=== PATIENT | female | born 1945 | race Caucasian/White ===

== ENCOUNTER 2020-08-03 05:05 | Emergency (ER) | payer MEDICARE, BC ==
[2020-08-03] MEDS ORDERED: Ondansetron 4 MG/2 ML SDV IVPUSH ONE (05:18)
--- NOTE | 2020-08-03 05:20 | EDM.PDOC ---
ED HPI GENERAL MEDICAL PROBLEM - General Chief Complaint: Abdominal Pain Stated Complaint: nausea Time Seen by Provider: 08/03/20 05:20 Source of Information: Reports: Patient, EMS History Limitations: Reports: No Limitations - History of Present Illness INITIAL COMMENTS - FREE TEXT/NARRATIVE: Kaylin, 74-year-old female, presents via ambulance after experiencing worsening nausea abdominal pressure consistent with previous bowel obstruction 8 to 10 years ago. She presents via ambulance with focus on the fact her nausea is worsened and history of abdominal obstruction. She denies any exposures, fever, chills, shortness of breath, or other COVID-19 pandemic concerns. Onset: Gradual Onset Date: 08/02/20 Onset Time: 23:00 Duration: Hour(s):, Getting Worse Location: Reports: Abdomen Quality: Reports: Pressure, Same as Previous Episode Severity: Moderate Improves with: Reports: None Worsens with: Reports: Eating Context: Reports: Activity Associated Symptoms: Reports: No Other Symptoms - Related Data Allergies Allergy/AdvReac Type Severity Reaction Status Date / Time celecoxib [From Celebrex] Allergy Stomach Verified 08/03/20 05:13 Upset Home Meds: Home Meds Aspirin 81 mg PO DAILY 08/03/20 [History] Cholecalciferol (Vitamin D3) [Vitamin D3] 4,000 unit PO DAILY 08/03/20 [History] Ferrous Sulfate 325 mg PO DAILY 08/03/20 [History] Fexofenadine [Marj] 180 mg PO DAILY 08/03/20 [History] Lutein/Min/Vit C/Vit E Acetate [Ocuvite Lutein] 1 cap PO DAILY 08/03/20 [History] Multivit,Calc,Mins/Iron/Folic [Thera-M] 1 tab PO DAILY 08/03/20 [History] Omeprazole 40 mg PO ONETIME 08/03/20 [History] PARoxetine [Paxil] 20 mg PO DAILY 08/03/20 [History] Pravastatin [Pravachol] 40 mg PO DAILY 08/03/20 [History] Past Medical History HEENT History: Reports: Impaired Vision Cardiovascular History: Reports: High Cholesterol Respiratory History: Reports: None Gastrointestinal History: Reports: Bowel Obstruction, Hiatal Hernia, Other (See Below) (Positive colorectal cancer screening using Cologuard) Genitourinary History: Reports: None Musculoskeletal History: Reports: Arthritis, Back Pain, Chronic (Degenerative disc, lumbar), Osteoarthritis, Other (See Below) (Plantar fasciitis of the foot) Neurological History: Reports: None Psychiatric History: Reports: Anxiety, Depression Hematologic History: Reports: Anemia Oncologic (Cancer) History: Reports: Colon (Per Cologuard testing) - Past Imaging History Past Imaging History: Reports: CAT Scan, Xray Social & Family History - Family History Family Medical History: No Pertinent Family History - Tobacco Use Tobacco Use Status *Q: Never Tobacco User ED ROS GENERAL - Review of Systems Review Of Systems: Comprehensive ROS is negative, except as noted in HPI. Constitutional: Reports: No Symptoms ED EXAM, GENERAL - Physical Exam Exam: See Below Free Text/Narrative:: Alert, oriented, in mild nauseous distress. HEENT is negative discharge or deformity. PERRLA with glasses. [place] moist mucous membranes with no erythema. Neck is soft and supple no lymphadenopathy, no JVD, no carotid bruit auscultated. Thorax has scattered rhonchi with no wheezes nor crackles. Cardiac is S1-S2 I do not appreciate murmur. Abdomen is rotund soft with no point tenderness but generalized discomfort with no bowel sounds auscultated at time of arrival. There is no pain or pressure over the urinary bladder pelvis. Skin is warm and dry no edema to the extremities she is able to move upon command. No integument abnormalities are appreciated. Exam Limited By: No Limitations Course - Vital Signs Last Recorded V/S: Last Vital Signs Temp 97.6 F 08/03/20 06:49 Pulse 81 08/03/20 06:49 Resp 18 08/03/20 06:49 BP 179/85 H 08/03/20 06:49 Pulse Ox 97 08/03/20 06:49 - Orders/Labs/Meds Orders: Active Orders 24 hr Category Date Time Status Abdomen 1V Upright [CR] Stat Exams 08/03/20 05:19 Ordered Abdomen 2V AP Upright Decub [CR] Stat Exams 08/03/20 05:19 Ordered Abdomen Pelvis w Cont [CT] Stat Exams 08/03/20 05:58 Ordered Chest 2V [CR] Stat Exams 08/03/20 05:20 Ordered Meropenem [Merrem] 1 gm Med 08/03/20 07:50 Active Sodium Chloride 0.9% [Normal Saline] 100 ml IV ONETIME Sodium Chloride 0.9% [Normal Saline] 50 ml Med 08/03/20 06:15 Active IV ASDIRECTED Medication Orders Sodium Chloride (Normal Saline) 50 mls @ 200 mls/min IV ASDIRECTED SANKET Last Admin: 08/03/20 07:14 Dose: 200 mls/min Documented by: WALLY Meropenem 1 gm/ Sodium (Chloride) 100 mls @ 200 mls/hr IV ONETIME ONE Stop: 08/03/20 08:19 Labs: Laboratory Tests 08/03/20 08/03/20 08/03/20 Range/Units 05:33 05:33 05:33 WBC 17.82 H (5.00-10.00) 10^3/uL RBC 4.51 (3.80-5.50) 10^6/uL Hgb 12.8 (12.0-16.0) g/dL Hct 38.7 (37.0-47.0) % MCV 85.8 (82.0-92.0) fL MCH 28.4 (27.0-31.0) pg MCHC 33.1 (32.0-36.0) g/dL RDW 13.0 (11.5-14.5) % Plt Count 323 (150-400) 10^3/uL MPV 11.0 H (7.4-10.4) fL Add Manual Diff Yes Neutrophils % (Manual) 92 H (50-70) % Band Neutrophils % 3 L (4-12) % Lymphocytes % (Manual) 1 L (20-40) % Monocytes % (Manual) 4 (2-8) % Absolute Neutrophils 16.39 Band Neutrophils # 0.53 Lymphocytes # (Manual) 0.18 Monocytes # (Manual) 0.71 Sodium 134 L (136-145) mmol/L Potassium 3.9 (3.5-5.1) mmol/L Chloride 100 (98-107) mmol/L Carbon Dioxide 25.8 (21.0-32.0) mmol/L Anion Gap 12.1 (5-15) mmol/L BUN 16 (7-18) mg/dL Creatinine 0.77 (0.51-1.17) mg/dL Est Cr Clr Drug Dosing 64.22 mL/min Estimated GFR (MDRD) > 60 mL/min Glucose 169 H (70-140) mg/dL Lactic Acid 1.3 (0.4-2.0) mmol/L Calcium 8.7 (8.7-10.3) mg/dL Total Bilirubin 0.6 (0.2-1.0) mg/dL AST 15 (15-37) U/L ALT 18 (14-63) U/L Alkaline Phosphatase 110 (46-116) U/L Total Protein 7.4 (6.4-8.2) g/dL Albumin 3.54 (3.40-5.00) g/dL Amylase 44 (25-125) U/L Lipase 88 (73-393) U/L Specimen Type Urine Color (YELLOW) Urine Appearance (CLEAR) Urine pH (5.0-9.0) Ur Specific [place] (1.005-1.030) Urine Protein (NEGATIVE) mg/dL Urine Glucose (UA) (NEGATIVE) mg/dL Urine Ketones (NEGATIVE) mg/dL Urine Occult Blood (NEGATIVE) Urine Nitrite (NEGATIVE) Urine Bilirubin (NEGATIVE) Urine Urobilinogen (0.2-1.0) E.U./dL Ur Leukocyte Esterase (NEGATIVE) Urine RBC (0-5) /HPF Urine WBC (0-5) /HPF Ur Epithelial Cells /LPF Amorphous Sediment (0/HPF) /HPF Urine Bacteria (NONE TO FEW) /HPF 08/03/20 Range/Units 05:50 WBC (5.00-10.00) 10^3/uL RBC (3.80-5.50) 10^6/uL Hgb (12.0-16.0) g/dL Hct (37.0-47.0) % MCV (82.0-92.0) fL MCH (27.0-31.0) pg MCHC (32.0-36.0) g/dL RDW (11.5-14.5) % Plt Count (150-400) 10^3/uL MPV (7.4-10.4) fL Add Manual Diff Neutrophils % (Manual) (50-70) % Band Neutrophils % (4-12) % Lymphocytes % (Manual) (20-40) % Monocytes % (Manual) (2-8) % Absolute Neutrophils Band Neutrophils # Lymphocytes # (Manual) Monocytes # (Manual) Sodium (136-145) mmol/L Potassium (3.5-5.1) mmol/L Chloride (98-107) mmol/L Carbon Dioxide (21.0-32.0) mmol/L Anion Gap (5-15) mmol/L BUN (7-18) mg/dL Creatinine (0.51-1.17) mg/dL Est Cr Clr Drug Dosing mL/min Estimated GFR (MDRD) mL/min Glucose (70-140) mg/dL Lactic Acid (0.4-2.0) mmol/L Calcium (8.7-10.3) mg/dL Total Bilirubin (0.2-1.0) mg/dL AST (15-37) U/L ALT (14-63) U/L Alkaline Phosphatase (46-116) U/L Total Protein (6.4-8.2) g/dL Albumin (3.40-5.00) g/dL Amylase (25-125) U/L Lipase (73-393) U/L Specimen Type Urincc Urine Color Yellow (YELLOW) Urine Appearance Slightly cloudy H (CLEAR) Urine pH 8.5 (5.0-9.0) Ur Specific [place] 1.020 (1.005-1.030) Urine Protein 30 H (NEGATIVE) mg/dL Urine Glucose (UA) Negative (NEGATIVE) mg/dL Urine Ketones Trace H (NEGATIVE) mg/dL Urine Occult Blood Trace-intact H (NEGATIVE) Urine Nitrite Negative (NEGATIVE) Urine Bilirubin Negative (NEGATIVE) Urine Urobilinogen 0.2 (0.2-1.0) E.U./dL Ur Leukocyte Esterase Negative (NEGATIVE) Urine RBC 5-10 H (0-5) /HPF Urine WBC 0-5 (0-5) /HPF Ur Epithelial Cells Few /LPF Amorphous Sediment Moderate H (0/HPF) /HPF Urine Bacteria Few (NONE TO FEW) /HPF Meds: Medications Generic Name Dose Route Start Last Admin Trade Name Freq PRN Reason Stop Dose Admin Sodium Chloride 50 mls @ 200 mls/min 08/03/20 06:15 08/03/20 07:14 Normal Saline IV 200 mls/min ASDIRECTED SANKET Administration Meropenem 1 gm/ Sodium 100 mls @ 200 mls/hr 08/03/20 07:50 Chloride IV 08/03/20 08:19 ONETIME ONE Discontinued Medications Generic Name Dose Route Start Last Admin Trade Name Freq PRN Reason Stop Dose Admin Diatrizoate Meglum/Diatrizoate Sod 30 ml 08/03/20 06:09 08/03/20 07:14 Gastrografin 37% PO 08/03/20 06:10 30 ml ONETIME ONE Administration Iopamidol 75 ml 08/03/20 06:09 08/03/20 07:14 Isovue-370 (76%) IVPUSH 08/03/20 06:10 75 ml ONETIME ONE Administration Ondansetron HCl 8 mg 08/03/20 05:18 08/03/20 05:26 Zofran IVPUSH 08/03/20 05:19 8 mg ONETIME ONE Administration - Radiology Interpretation Free Text/Narrative:: Scattered air-fluid levels on flat upright. Hazy appearing chest x-ray with some cardiomegaly over read pending. CT with IV and oral contrast will be performed of the abdomen pelvis secondary of history of torturous bowel and likelihood of obstruction. CT Results Date: 08/03/20 - Re-Assessments/Exams Free Text/Narrative Re-Assessment/Exam: 08/03/20 06:06 Significant improvement, more responsive and appropriate after IV Ondanastron resolved her nausea. Departure - Departure Time of Disposition: 08:02 Disposition: DC/Tfer to Acute Hospital 02 Condition: Good Clinical Impression: Small bowel obstruction, Nausea & vomiting, Small bowel obstruction due to adhesions - Discharge Information *PRESCRIPTION DRUG MONITORING PROGRAM REVIEWED*: Not Applicable *COPY OF PRESCRIPTION DRUG MONITORING REPORT IN PATIENT DENISE: Not Applicable Referrals: Valentina Rueda NP [Primary Care Provider] - Forms: ED Department Discharge, Interfacility Transfer EMTALA Additional Instructions: Contact with [address] Christine mccabe and will transfer via [facility] ambulance. Sepsis Event Note (ED) - Evaluation Sepsis Screening Result: No Definite Risk - Focused Exam Vital Signs: Vital Signs Temp Pulse Resp BP Pulse Ox 08/03/20 06:49 97.6 F 81 18 179/85 H 97 08/03/20 06:30 79 18 167/78 H 96 08/03/20 06:00 81 18 172/83 H 96 08/03/20 05:30 80 18 177/83 H 96 08/03/20 05:15 97.2 F 76 20 172/81 H 96 08/03/20 05:13 97.2 F 72 20 171/82 H 92 L ED Communication - ED Communication Date/Time Date: 08/03/20 Time Called: 07:59 - Discussed Case With (1) Discussed Case With (1): Admitting Provider Person/s Notified (1): Zac King MD ([facility]) - Problem List & Annotations (1) Nausea & vomiting SNOMED Code(s): 35530413 Code(s): R11.2 - NAUSEA WITH VOMITING, UNSPECIFIED Status: Acute Priority: High Current Visit: No Qualifiers: Vomiting type: bilious vomiting Qualified Code(s): R11.14 - Bilious vomiting (2) Bowel obstruction SNOMED Code(s): 55425560 Code(s): K56.609 - UNSP INTESTNL OBST, UNSP TO PARTIAL VERSUS COMPLETE OBST Status: Acute Priority: High Current Visit: No (3) Abdominal pain SNOMED Code(s): 60705587 Code(s): R10.9 - UNSPECIFIED ABDOMINAL PAIN Status: Acute Priority: High Current Visit: No (4) Hyperglycemia SNOMED Code(s): 80780566 Code(s): R73.9 - HYPERGLYCEMIA, UNSPECIFIED Status: Acute Current Visit: No (5) Leukocytosis, unspecified SNOMED Code(s): 180280059, 721619482 Code(s): D72.829 - ELEVATED WHITE BLOOD CELL COUNT, UNSPECIFIED Status: Acute Current Visit: No Qualifiers: Leukocytosis type: unspecified Qualified Code(s): D72.829 - Elevated white blood cell count, unspecified (6) Small bowel obstruction due to adhesions SNOMED Code(s): 117863025 Code(s): K56.50 - INTESTNL ADHESIONS, UNSP TO PARTIAL VERSUS COMPLETE OBST Status: Acute Current Visit: Yes (7) Hepatic steatosis SNOMED Code(s): 361174140 Code(s): K76.0 - FATTY (CHANGE OF) LIVER, NOT ELSEWHERE CLASSIFIED Status: Chronic Priority: Medium Current Visit: Yes (8) Hiatal hernia SNOMED Code(s): 61957892 Code(s): K44.9 - DIAPHRAGMATIC HERNIA WITHOUT OBSTRUCTION OR GANGRENE Status: Chronic Priority: Medium Current Visit: Yes (9) Inguinal hernia of left side without obstruction or gangrene SNOMED Code(s): 928174254 Code(s): K40.90 - UNIL INGUINAL HERNIA, W/O OBST OR GANGR, NOT SPCF RECUR Status: Chronic Priority: Medium Current Visit: Yes - Problem List Review Problem List Initiated/Reviewed/Updated: Yes - My Orders Last 24 Hours: My Active Orders 08/03/20 05:19 Abdomen 1V Upright [CR] Stat Abdomen 2V AP Upright Decub [CR] Stat 08/03/20 05:20 Chest 2V [CR] Stat 08/03/20 05:58 Abdomen Pelvis w Cont [CT] Stat 08/03/20 06:15 Sodium Chloride 0.9% [Normal Saline] 50 ml IV ASDIRECTED 08/03/20 07:50 Meropenem [Merrem] 1 gm Sodium Chloride 0.9% [Normal Saline] 100 ml IV ONETIME - Assessment/Plan Last 24 Hours: My Active Orders 08/03/20 05:19 Abdomen 1V Upright [CR] Stat Abdomen 2V AP Upright Decub [CR] Stat 08/03/20 05:20 Chest 2V [CR] Stat 08/03/20 05:58 Abdomen Pelvis w Cont [CT] Stat 08/03/20 06:15 Sodium Chloride 0.9% [Normal Saline] 50 ml IV ASDIRECTED 08/03/20 07:50 Meropenem [Merrem] 1 gm Sodium Chloride 0.9% [Normal Saline] 100 ml IV ONETIME Plan: Contact with [address] Christine mccabe and will transfer via [facility].
[2020-08-03] MEDS ORDERED: Iopamidol 755 Mg/ML 75 ML Bottle IVPUSH ONE (06:09)
[2020-08-03] MEDS ORDERED: Diatrizoate Meglumine/Diatrizoate Sodium 37% 30 ML Bottle PO ONE (06:09)
[2020-08-03 06:10] LABS: ANION GAP 12.1 mmol/L (5-15); CHLORIDE,CL 100 mmol/L (98-107); SODIUM,NA 134 mmol/L (136-145)
[2020-08-03] MEDS ORDERED: Sodium Chloride 0.9% 50 ML IV SCH ×2 (06:15→08:30)
[2020-08-03] MEDS ORDERED: Meropenem 1 GM in Sodium Chloride 0.9% 100 ML IV ONE (07:50)
[2020-08-03] MEDS ORDERED: LORazepam 2 MG/ML SDV IVPUSH ONE (08:28)
[2020-08-03] MEDS ORDERED: Sodium Chloride 0.9% 1,000 ML IV SCH (08:30)
[2020-08-03 09:10] VITALS: BP 191/84; PULSE 99
--- NOTE | 2020-08-03 10:54 | CR ---
[id number] RAD/RAD Chest PA And Lateral EXAM: RAD Chest PA And Lateral INDICATION: ABDOMEN PAIN COMPARISON: None. DISCUSSION: Low lung volumes associated vascular crowding. Bilateral patchy pulmonary infiltrates at the lung bases, right greater than left. No pneumothorax or pleural effusion. IMPRESSION: Bilateral patchy pulmonary infiltrates at the lung bases, right greater than left. Frederick Reynoso DO 08/03/20 1054 Thank you for allowing us to participate in the care of your patient.
--- NOTE | 2020-08-03 10:55 | CR ---
[id number] RAD/RAD Abd Flat and Upright 2V EXAM: RAD Abd Flat and Upright 2V INDICATION: ABDOMEN PAIN COMPARISON: None. DISCUSSION: Upper abdominal small bowel air-fluid level. No dilated loops are identified. No radiographically evident pneumoperitoneum. Moderate amount of retained stool within the colon. IMPRESSION: Findings suggestive of ileus. Frederick Reynoso DO 08/03/20 1055 Thank you for allowing us to participate in the care of your patient.
== END 2020-08-03 08:45 ==
LOC: KA.ED 05:05
DX: K56.50 Intestinal adhesions [bands], unspecified as to partial versus complete obstruction (principal); E78.00 Pure hypercholesterolemia, unspecified; M19.90 Unspecified osteoarthritis, unspecified site; F41.9 Anxiety disorder, unspecified; F32.9 Major depressive disorder, single episode, unspecified; D64.9 Anemia, unspecified; Z88.1 Allergy status to other antibiotic agents; Z79.82 Long term (current) use of aspirin; Z79.899 Other long term (current) drug therapy
CPT/HCPCS: 36415; 71046; 74021; 74177; 80053; 81001; 82150; 83605; 83690; 85025; 96365; 96375; 99284; 99285-25; J2060; J2185; J2405; J7030; Q9963; Q9967

== ENCOUNTER 2021-03-14 04:25 | Emergency (ER) | payer MEDICARE, BC ==
[2021-03-14] MEDS ORDERED: Sodium Chloride 0.9% 1,000 ML ONE (05:05)
[2021-03-14] MEDS ORDERED: Sodium Chloride 0.9% 1,000 ML IV ONE ×2 (05:07→08:21)
--- NOTE | 2021-03-14 05:48 | EDM.PDOC ---
ED HPI GENERAL MEDICAL PROBLEM - General Chief Complaint: Abdominal Pain Time Seen by Provider: 03/14/21 05:05 Source of Information: Reports: Patient History Limitations: Reports: No Limitations - History of Present Illness INITIAL COMMENTS - FREE TEXT/NARRATIVE: Patient presents with profuse vomiting for 4 hours. She is also burping but not passing any stool or gas since 6 hours ago. She has had bowel obstructions in the past and feels like that again. She is quite sure she has Crohn's but they can't make the definitive diagnosis without a colonoscopy, which she was told not to have again after an attempt found her colon is very twisted, she says. She also has several adhesions from a hysterectomy, she has been told. Her abdomen is sore but not acutely painful. Starting 5 days ago, she had 3 days of frequent diarrhea (M-W), but that stopped on . Tuesday (yesterday) she had some again until a little before midnight. - Related Data Allergies Allergy/AdvReac Type Severity Reaction Status Date / Time celecoxib [From Celebrex] Allergy Stomach Verified 03/14/21 06:56 Upset Home Meds: Home Meds Aspirin 81 mg PO DAILY 08/03/20 [History] Cholecalciferol (Vitamin D3) [Vitamin D3] 4,000 unit PO DAILY 08/03/20 [History] Ferrous Sulfate 325 mg PO DAILY 08/03/20 [History] Fexofenadine [Marj] 180 mg PO DAILY 08/03/20 [History] Lutein/Min/Vit C/Vit E Acetate [Ocuvite Lutein] 1 cap PO DAILY 08/03/20 [History] Multivit,Calc,Mins/Iron/Folic [Thera-M] 1 tab PO DAILY 08/03/20 [History] Omeprazole 40 mg PO ONETIME 08/03/20 [History] PARoxetine [Paxil] 20 mg PO DAILY 08/03/20 [History] Pravastatin [Pravachol] 40 mg PO DAILY 08/03/20 [History] Past Medical History HEENT History: Reports: Cataract, Impaired Vision Cardiovascular History: Reports: High Cholesterol Respiratory History: Reports: None Gastrointestinal History: Reports: Bowel Obstruction, Hiatal Hernia, Other (See Below) Other Gastrointestinal History: "twists in colon"noted on colonoscopy Genitourinary History: Reports: None, Other (See Below) Other Genitourinary History: urinary urgency [employer] History: Reports: Musculoskeletal History: Reports: Arthritis, Back Pain, Chronic, Osteoarthritis, Other (See Below) Other Musculoskeletal History: bursitis in R upper leg and R shoulder Neurological History: Reports: None Psychiatric History: Reports: Anxiety, Depression Hematologic History: Reports: Anemia Oncologic (Cancer) History: Reports: Colon Dermatologic History: Reports: Other (See Below) Other Dermatologic History: moles to back - Infectious Disease History Infectious Disease History: Reports: Chicken Pox, Influenza, Measles - Past Surgical History GI Surgical History: Reports: Colonoscopy Female Surgical History: Reports: None, Hysterectomy, Other (See Below) Other Female Surgeries/Procedures: partial hysterectomy Neurological Surgical History: Reports: None Musculoskeletal Surgical History: Reports: None - Past Imaging History Past Imaging History: Reports: CAT Scan, Xray Social & Family History - Family History Family Medical History: No Pertinent Family History - Caffeine Use Caffeine Use: Reports: Coffee ED ROS GENERAL - Review of Systems Review Of Systems: See Below Constitutional: Denies: Fever, Malaise, Weakness, Diaphoresis HEENT: Denies: Throat Pain, Vision Change Respiratory: Denies: Shortness of Breath, Cough Cardiovascular: Denies: Chest Pain, Lightheadedness, Syncope GI/Abdominal: Reports: Abdominal Pain, Diarrhea, Nausea, Vomiting : Denies: Dysuria, Flank Pain Musculoskeletal: Reports: No Symptoms Skin: Denies: Cyanosis, Jaundice, Mottled, Pallor, Diaphoresis Neurological: Denies: Confusion, Dizziness, Headache, Seizure, Syncope, Trouble Speaking, Difficulty Walking Psychiatric: Denies: Agitation, Anxiety, Confusion ED EXAM, GI/ABD - Physical Exam Exam: See Below Exam Limited By: No Limitations General Appearance: Alert, WD/WN, No Apparent Distress Eyes: Bilateral: Normal Appearance, EOMI Ears: Normal External Exam, Hearing Grossly Normal Nose: Normal Inspection, No Blood Throat/Mouth: Normal Inspection, Normal Lips, Normal Voice, No Airway Compromise Head: Atraumatic, Normocephalic Neck: Normal Inspection, Full Range of Motion Respiratory/Chest: No Respiratory Distress, Lungs Clear, Normal Breath Sounds, No Accessory Muscle Use Cardiovascular: Regular Rate, Rhythm, No Murmur GI/Abdominal Exam: Soft, No Organomegaly, No Distention, Tender (mild, general), Abnormal Bowel Sounds (decreased). No: Guarding, Rigid Back Exam: Normal Inspection, Full Range of Motion. No: CVA Tenderness (L), CVA Tenderness (R) Extremities: Normal Inspection, Normal Range of Motion Neurological: Alert, Oriented, Normal Cognition, No Motor/Sensory Deficits Psychiatric: Normal Affect, Normal Mood Skin Exam: Warm, Dry, Intact, Normal Color, No Rash Course - Vital Signs Last Recorded V/S: Last Vital Signs Temp 96.9 F 03/14/21 04:25 Pulse 88 03/14/21 04:25 Resp 16 03/14/21 04:25 BP 150/81 H 03/14/21 04:25 Pulse Ox 95 03/14/21 04:25 - Orders/Labs/Meds Orders: Active Orders 24 hr Category Date Time Status Sodium Chloride 0.9% [Normal Saline] 1,000 ml Med 03/14/21 08:21 Ordered IV .BOLUS Sodium Chloride 0.9% [Normal Saline] 50 ml Med 03/14/21 06:45 Active IV ASDIRECTED Medication Orders Sodium Chloride (Normal Saline) 50 mls @ 200 mls/hr IV ASDIRECTED SANKET Last Admin: 03/14/21 06:28 Dose: 200 mls/hr Documented by: MYRIAM Sodium Chloride (Normal Saline) 1,000 mls @ 500 mls/hr IV .BOLUS ONE Stop: 03/14/21 10:20 Labs: Laboratory Tests 03/14/21 03/14/21 03/14/21 Range/Units 05:07 05:22 05:22 WBC 17.93 H (5.00-10.00) 10^3/uL RBC 4.39 (3.80-5.50) 10^6/uL Hgb 12.8 (12.0-16.0) g/dL Hct 39.1 (37.0-47.0) % MCV 89.1 D (82.0-92.0) fL MCH 29.2 (27.0-31.0) pg MCHC 32.7 (32.0-36.0) g/dL RDW 13.4 (11.5-14.5) % Plt Count 314 (150-400) 10^3/uL MPV 11.2 H (7.4-10.4) fL Add Manual Diff Yes Neutrophils % (Manual) 89 H (50-70) % Band Neutrophils % 3 L (4-12) % Lymphocytes % (Manual) 5 L (20-40) % Monocytes % (Manual) 2 (2-8) % Basophils % (Manual) 1 (0-1) % Absolute Neutrophils 15.96 Band Neutrophils # 0.54 Lymphocytes # (Manual) 0.90 Monocytes # (Manual) 0.36 Basophils # (Manual) 0.18 Sodium 139 (136-145) mmol/L Potassium 4.1 (3.5-5.1) mmol/L Chloride 101 (98-107) mmol/L Carbon Dioxide 27.4 (21.0-32.0) mmol/L Anion Gap 14.7 (5-15) mmol/L BUN 17 (7-18) mg/dL Creatinine 0.78 (0.51-1.17) mg/dL Est Cr Clr Drug Dosing 60.13 mL/min Estimated GFR (MDRD) > 60 mL/min Glucose 121 (70-140) mg/dL Calcium 8.0 L (8.7-10.3) mg/dL Total Bilirubin 0.5 (0.2-1.0) mg/dL AST 17 (15-37) U/L ALT 22 (14-63) U/L Alkaline Phosphatase 104 (46-116) U/L C-Reactive Protein 1.4 H (0.0-0.9) mg/dL Total Protein 6.8 (6.4-8.2) g/dL Albumin 3.18 L (3.40-5.00) g/dL Lipase 109 (73-393) U/L Specimen Type Urinvoid Urine Color Yellow (YELLOW) Urine Appearance Slightly cloudy H (CLEAR) Urine pH 5.5 (5.0-9.0) Ur Specific [place] 1.025 (1.005-1.030) Urine Protein Trace H (NEGATIVE) mg/dL Urine Glucose (UA) Negative (NEGATIVE) mg/dL Urine Ketones Negative (NEGATIVE) mg/dL Urine Occult Blood Small H (NEGATIVE) Urine Nitrite Negative (NEGATIVE) Urine Bilirubin Negative (NEGATIVE) Urine Urobilinogen 0.2 (0.2-1.0) E.U./dL Ur Leukocyte Esterase Negative (NEGATIVE) Urine RBC 0-5 (0-5) /HPF Urine WBC 0-5 (0-5) /HPF Ur Epithelial Cells Few /LPF Urine Bacteria Few (NONE TO FEW) /HPF Urine Mucus Moderate H (NEGATIVE) /LPF Meds: Medications Generic Name Dose Route Start Last Admin Trade Name Freq PRN Reason Stop Dose Admin Sodium Chloride 50 mls @ 200 mls/hr 03/14/21 06:45 03/14/21 06:28 Normal Saline IV 200 mls/hr ASDIRECTED SANKET Administration Sodium Chloride 1,000 mls @ 500 mls/hr 03/14/21 08:21 Normal Saline IV 03/14/21 10:20 .BOLUS ONE Discontinued Medications Generic Name Dose Route Start Last Admin Trade Name Freq PRN Reason Stop Dose Admin Sodium Chloride Confirm 03/14/21 05:05 03/14/21 05:10 Normal Saline Administered 03/14/21 05:06 Not Given Dose 1,000 mls @ as directed .ROUTE .STK-MED ONE Sodium Chloride 1,000 mls @ 999 mls/hr 03/14/21 05:07 03/14/21 05:09 Normal Saline IV 03/14/21 06:07 999 mls/hr .BOLUS ONE Administration Iopamidol 75 ml 03/14/21 06:35 03/14/21 06:28 Iopamidol 755 Mg/Ml 75 Ml Bottle IVPUSH 03/14/21 06:36 75 ml ONETIME ONE Administration - Re-Assessments/Exams Free Text/Narrative Re-Assessment/Exam: 03/14/21 05:56 Nausea isn't too bad right now. Waiting on labs to do CT. 03/14/21 08:22 CT shows a high grade partial small bowel obstruction or early complete obstruction probably due to adhesions or mild inflammatory bowel changes. I discussed findings and recommendations with patient; she would like to go to [facility]. I discussed case with Dr. King, hospitalist, who accepted for transfer and would like an NG tube as well as a Covid test. 03/14/21 08:28 Patient is doing well and is quite comfortable currently. No vomiting in ER. No passing stool or gas either. Stable at discharge. Departure - Departure Time of Disposition: : Disposition: DC/Tfer to Acute Hospital 02 Condition: Good Clinical Impression: SBO (small bowel obstruction) - Discharge Information Referrals: Valentina Rueda NP [Primary Care Provider] - Forms: ED Department Discharge, Interfacility Transfer EMTALA Sepsis Event Note (ED) - Focused Exam Vital Signs: Vital Signs Temp Pulse Resp BP Pulse Ox 03/14/21 04:25 96.9 F 88 16 150/81 H 95 - My Orders Last 24 Hours: My Active Orders 03/14/21 06:45 Sodium Chloride 0.9% [Normal Saline] 50 ml IV ASDIRECTED 03/14/21 08:21 Sodium Chloride 0.9% [Normal Saline] 1,000 ml IV .BOLUS - Assessment/Plan Last 24 Hours: My Active Orders 03/14/21 06:45 Sodium Chloride 0.9% [Normal Saline] 50 ml IV ASDIRECTED 03/14/21 08:21 Sodium Chloride 0.9% [Normal Saline] 1,000 ml IV .BOLUS
[2021-03-14 06:10] LABS: ANION GAP 14.7 mmol/L (5-15); CHLORIDE,CL 101 mmol/L (98-107); SODIUM,NA 139 mmol/L (136-145)
[2021-03-14 06:25] VITALS: BP 150/81; PULSE 88
[2021-03-14] MEDS ORDERED: Iopamidol 755 Mg/ML 75 ML Bottle IVPUSH ONE (06:35)
[2021-03-14] MEDS ORDERED: Sodium Chloride 0.9% 50 ML IV SCH (06:45)
--- NOTE | 2021-03-14 08:08 | CT ---
[id number] CT/CT Abdomen Pelvis W IV EXAM: CT Abdomen Pelvis W IV CLINICAL DATA: ABDOMINAL PAIN COMPARISON: No previous similar exam is available. FINDINGS: There is evidence of small bowel obstruction The uterus has been removed. There is no free fluid or free air The gallbladder is slightly distended There is a large hiatal hernia The liver and spleen, kidneys, adrenals, pancreas, and aorta otherwise show no acute abnormalities The pelvis shows no mass or adenopathy Report provided at time of exam IMPRESSION: RECURRENT SMALL BOWEL OBSTRUCTION Fredis Ge MD 03/14/21 0825 Thank you for allowing us to participate in the care of your patient.
== END 2021-03-14 09:00 ==
LOC: KA.ED 04:25
DX: K56.609 Unspecified intestinal obstruction, unspecified as to partial versus complete obstruction (principal); E78.00 Pure hypercholesterolemia, unspecified; Z79.82 Long term (current) use of aspirin; Z88.8 Allergy status to other drugs, medicaments and biological substances; Z79.899 Other long term (current) drug therapy; Z20.828 Contact with and (suspected) exposure to other viral communicable diseases
CPT/HCPCS: 36415; 43752; 74177; 80053; 81001; 83690; 85025; 86140; 99284; 99285-25; J7030; Q9967; U0002

== ENCOUNTER 2022-02-19 03:07 | Inpatient (IN) | payer MEDICARE, BC ==
[2022-02-19] MEDS ORDERED: Sodium Chloride 0.9% 10 ML Syringe FLUSH PRN (03:29)
[2022-02-19] MEDS ORDERED: Sodium Chloride 0.9% 1,000 ML IV ONE (03:30)
[2022-02-19] MEDS ORDERED: Ondansetron 4 MG/2 ML SDV IVPUSH ONE ×2 (03:30→05:51)
[2022-02-19 04:33] LABS: ANION GAP 20.6 mmol/L (5-15); CHLORIDE,CL 97 mmol/L (98-107); SODIUM,NA 136 mmol/L (136-145)
[2022-02-19 04:44] LABS: ESTIMATED GFR 88 mL/min (>=60)
[2022-02-19] MEDS ORDERED: Iopamidol 755 Mg/ML 75 ML Bottle IVPUSH ONE (05:09)
[2022-02-19] MEDS ORDERED: Sodium Chloride 0.9% 50 ML IV SCH (05:15)
[2022-02-19] MEDS ORDERED: Piperacillin/Tazobactam 4.5 GM in Sodium Chloride 0.9% 100 ML IV STA (05:46)
[2022-02-19] MEDS ORDERED: Sodium Chloride 0.9% 100 ML ONE (06:13)
[2022-02-19] MEDS ORDERED: Sodium Chloride 0.9% 100 ML IV SCH (06:14)
[2022-02-19] MEDS: Sodium Chloride 0.9% 1,000 ML IV SCH ×3 (07:12→22:48)
[2022-02-19] MEDS ORDERED: Ondansetron 4 MG/2 ML SDV IV PRN (08:54)
[2022-02-19] MEDS ORDERED: Sodium Chloride 0.9% 1,000 ML IV SCH (09:00)
[2022-02-19] MEDS ORDERED: Piperacillin/Tazobactam 4.5 GM in Sodium Chloride 0.9% 100 ML IV SCH (09:00)
[2022-02-19] MEDS: Piperacillin/Tazobactam 4.5 GM in Sodium Chloride 0.9% 100 ML IV SCH ×2 (12:09→18:31)
[2022-02-19] MEDS: Enoxaparin 40 MG/0.4 ML Syringe SUBCUT SCH (13:35)
[2022-02-19] MEDS: Pantoprazole 40 MG Vial IVPUSH SCH (13:35)
[2022-02-19] MEDS ORDERED: Acetaminophen 500 MG Tab PO ONE (14:45)
[2022-02-19] MEDS ORDERED: Labetalol 100 MG/20 ML MDV IVPUSH ONE (15:33)
[2022-02-19] MEDS ORDERED: Acetaminophen 325 MG Tab PO PRN (21:05)
[2022-02-20] MEDS: Piperacillin/Tazobactam 4.5 GM in Sodium Chloride 0.9% 100 ML IV SCH ×4 (00:16→18:29)
[2022-02-20 07:40] LABS: ANION GAP 12.5 mmol/L (5-15)
[2022-02-20] MEDS: Pantoprazole 40 MG Vial IVPUSH SCH (09:28)
[2022-02-20] MEDS: Sodium Chloride 0.9% 1,000 ML IV SCH (09:28)
[2022-02-20] MEDS: Enoxaparin 40 MG/0.4 ML Syringe SUBCUT SCH (13:36)
[2022-02-20] MEDS ORDERED: Labetalol 100 MG/20 ML MDV IVPUSH PRN (19:43)
[2022-02-21] MEDS ORDERED: Sodium Chloride 0.9% 50 ML IV SCH (00:44)
[2022-02-21] MEDS: Piperacillin/Tazobactam 4.5 GM in Sodium Chloride 0.9% 100 ML IV SCH ×3 (00:45→12:42)
[2022-02-21 07:07] VITALS: BP 167/75; PULSE 71
[2022-02-21] MEDS ORDERED: Cetirizine 10 MG Tab PO ONE (07:54)
[2022-02-21] MEDS: Pantoprazole 40 MG Vial IVPUSH SCH (08:53)
[2022-02-21] MEDS ORDERED: PARoxetine 20 MG Tab PO SCH (09:00)
[2022-02-21] MEDS: Enoxaparin 40 MG/0.4 ML Syringe SUBCUT SCH (14:00)
== END 2022-02-21 14:35 | disposition home or self-care (01) | DRG 872 ==
LOC: KA.ED 03:07 → SUPCPDRO 03:07 → KA.MS 08:52 → UNDODISIN 02-21 14:35
PROVIDERS: ADMIT Physician Assistant Medical; ATTEND Nurse Practitioner Family
DX: K56.609 Unspecified intestinal obstruction, unspecified as to partial versus complete obstruction (principal); K52.9 Noninfective gastroenteritis and colitis, unspecified; D72.829 Elevated white blood cell count, unspecified; D72.825 Bandemia; R74.02 Elevation of levels of lactic acid dehydrogenase [LDH]; E78.00 Pure hypercholesterolemia, unspecified; K44.9 Diaphragmatic hernia without obstruction or gangrene; R39.15 Urgency of urination; M19.90 Unspecified osteoarthritis, unspecified site; A41.9 Sepsis, unspecified organism; K50.012 Crohn's disease of small intestine with intestinal obstruction; K50.90 Crohn's disease, unspecified, without complications; Z88.8 Allergy status to other drugs, medicaments and biological substances; E83.51 Hypocalcemia; E78.5 Hyperlipidemia, unspecified; Z20.822 Contact with and (suspected) exposure to COVID-19; I10 Essential (primary) hypertension; K21.9 Gastro-esophageal reflux disease without esophagitis; F32.A Depression, unspecified; D64.9 Anemia, unspecified; F41.9 Anxiety disorder, unspecified; Z79.82 Long term (current) use of aspirin; Z98.42 Cataract extraction status, left eye; Z98.41 Cataract extraction status, right eye; Z79.899 Other long term (current) drug therapy; Z87.19 Personal history of other diseases of the digestive system; Z90.710 Acquired absence of both cervix and uterus
CPT/HCPCS: 36415; 74177; 80053; 81001; 82947; 83605; 83690; 85025; 85048; 87040; 96361; 96365; 96375; 96376; 99285-25; A9270-GY; C9113; J1650; J2405; J2543; J3490; J7030; Q9967; U0002